=== PATIENT | female | born 1955 | race Caucasian/White ===

== ENCOUNTER 2016-10-18 18:05 | Emergency (ER) | payer BC ==
[2016-10-18] MEDS ORDERED: methylPREDNISolone SOD SUCC 125 MG/2 ML VIAL IVP ONE (18:15)
[2016-10-18 18:18] VITALS: TEMP 99
[2016-10-18] MEDS ORDERED: FAMOTIDINE 20 MG/2 ML SDV IVP ONE (18:19)
[2016-10-18] MEDS ORDERED: HYOSCYAMINE SULFATE 0.125 MG TAB PO ONE (18:20)
[2016-10-18] MEDS ORDERED: MAG HYDROX/AL HYDROX/SIMETH 30 ML UDCUP PO ONE (18:20)
--- NOTE | 2016-10-18 18:59 | EDPHY ---
H & P Time Seen by Provider: 10/18/16 18:14 HPI/ROS: This patient ordered food to be delivered to their home from restaurant the never 8 at and shortly after eating and she started developing some throat tightness and tightness in her chest that felt like prior food allergy to sesame while to her. She felt confident that this was the cause though she is uncertain of the ingredients due to the symptoms being so reminiscent of prior episode of sesame while allergy. However, she reports a bowling ball feeling in chest-like a crowbar central chest radiating to back as well. She states that she had this with prior episode. She feels some anxiety associated with her symptoms as well with no other focal symptoms except for some burning sensation that she attributes to acid reflux. She thinks that she has swelling in her throat that is causing the tight feeling in her throat as well. She took 50 mg of Benadryl shortly prior to arrival and came in for further evaluation. ROS: Constitutional: No fevers chills or fatigue HEENT: No URI symptoms. No coryza. No dysphonia Pulmonary: No wheezing or shortness of breath Cardiovascular: No heart palpitations. No lower extremity swelling or calf pain GI: No nausea or vomiting. No abdominal pain : No complaints Integumentary: No urticaria or skin rash. Neuro: No focal symptoms 10 point ROS is otherwise negative Past Medical/Surgical History: Obesity Prior food allergy Postmenopausal Family history is negative for premature coronary artery disease, DVT or PE Social History: Has 1 glass of wine a day. No illicit drug use Smoking Status: Never smoked Physical Exam: General Appearance: Alert, no distress. Eyes: Pupils equal and round no pallor or injection. ENT, Mouth: Mucous membranes moist. Respiratory: There are no retractions, lungs are clear to auscultation. Cardiovascular: Regular rate and rhythm. No murmur gallop or rub Gastrointestinal: Abdomen is soft and nontender, no masses, bowel sounds normal. Neurological: GCS 15 with no focal deficits. Skin: Warm and dry, no rashes. Musculoskeletal: Neck is supple nontender. Extremities are symmetrical, full range of motion. Psychiatric: Mood and affect are normal DIFFERENTIAL DIAGNOSIS: After history and physical exam differential diagnosis was considered for food allergy with GERD and esophageal spasm, coronary syndrome, KS, aortic dissection, aortic aneurysm, pneumonia, pneumothorax, Constitutional: Initial Vital Signs Temperature (C) 37.2 C 07/23/17 18:15 Heart Rate 86 10/18/16 18:15 Respiratory Rate 20 10/18/16 18:15 Blood Pressure 152/115 H 10/18/16 18:15 O2 Sat (%) 99 10/18/16 18:15 O2 Delivery Mode Room Air O2 (L/minute) 2 Allergies/Adverse Reactions: amoxicillin Allergy (Verified 10/18/16 18:15) aspirin Allergy (Verified 10/18/16 18:15) sesame oil Allergy (Verified 10/18/16 18:18) sesame seed Allergy (Verified 10/18/16 18:18) Home Medications: Medication Instructions Recorded Clopidogrel Bisulfate [Plavix] 75 mg PO DAILY #15 tablet 10/18/16 Estrogel 10/18/16 Famotidine [Pepcid 20 MG (*)] 20 mg PO BID #10 tab 10/18/16 Metoprolol Tartrate [Lopressor 25 25 mg PO BID #60 tab 10/18/16 mg (*)] predniSONE 40 mg PO DAILY #8 tab 10/18/16 MDM/Departure - MDM Diagnostics: Initial 12 lead EKG performed at 1909 indication chest pain Sinus rhythm at 67 Intervals: P R of 156, QRS of 90, QTC of 5 with 3 Rum[place]: P of 37, QRS of-57, T of-41 ST segments are notable for ST depression 1 mm in V3 and V4 with T-wave inversions in those leads, flat Ts in V5 Overall assessment: sinus rhythm with left anterior fascicular block, lateral ST depression-cannot rule out lateral ischemia Repeat EKG performed at 7:47 p.m. indication-spontaneous resolution of chest pain evaluate for interval EKG change Performed at 7:47 p.m. reveals sinus rhythm at 64 Intervals: Normal throughout Intervals: Change Rumney: Unchanged ST segments: Resolution of T-wave inversions in V3 and V4-ST depression also resolved. V5 T-wave now upright overall assessment sinus rhythm left anterior fascicular block with evidence of it dynamic lateral ST changes resolved back to normal Medications Given: Discontinued Medications Al Hydroxide/Mg Hydroxide (Maalox Susp) 30 ml PO EDNOW ONE Stop: 10/18/16 18:21 Last Admin: 10/18/16 18:26 Dose: 30 ml Clopidogrel Bisulfate (Plavix) 300 mg PO EDNOW ONE Stop: 10/18/16 19:52 Last Admin: 10/18/16 19:54 Dose: 300 mg Famotidine (Pepcid) 40 mg IVP EDNOW ONE Stop: 10/18/16 18:20 Last Admin: 10/18/16 18:27 Dose: 40 mg Hyoscyamine Sulfate (Levsin, Hyomax-Sl) 0.125 mg PO EDNOW ONE Stop: 10/18/16 18:21 Last Admin: 10/18/16 18:26 Dose: 0.125 mg Sodium Chloride (Ns) 1,000 mls @ 0 mls/hr IV EDNOW ONE PRN Reason: KVO Stop: 10/18/16 19:24 Last Admin: 10/18/16 19:30 Dose: 1,000 mls Methylprednisolone Sodium Succinate (Solu-Medrol) 125 mg IVP EDNOW ONE Stop: 10/18/16 18:16 Last Admin: 10/18/16 18:18 Dose: 125 mg Metoprolol Tartrate (Lopressor) 25 mg PO EDNOW ONE Stop: 10/18/16 20:24 Last Admin: 10/18/16 20:31 Dose: 25 mg ED Course/Re-evaluation: Patient took 50 mg of Benadryl prior to arrival Treated here with IV Solu-Medrol 125 and Pepcid 40 mg IV Maalox 30 mg and Levsin 0.125 for GERD symptoms with improvement Patient had subjective improvement in her symptoms - marked reduction and that tight feeling her throat. She was able to relax. She had improvement in the GERD symptoms. Manual BP recheck at 18 50- 160/94 After treatment with initial round of meds patient still has 2/10 chest pressure and tightness. EKG is performed which is abnormal. cardiac labs sent. The patient declines aspirin stating that it "makes her feel hot". Patient went to chest x-ray prior to the nitroglycerin sublingual being administered. By the time she came back from chest x-ray she reported that she had absolutely no chest or neck discomfort with symptom-free. Despite my concerns about potential lateral cardiac ischemia/coronary syndrome the patient declines admission understanding the possible risk of KS and cardiac arrest & . She did accept metoprolol 25 mg p.o. for a heart rate of 80 and blood pressure 150/[address] Edil Johnson-provider relations advocate on-call to facilitate close follow- up and after this conversation the patient decides that she will stay for 3 or 4 hours after initial troponin draw for repeat troponin as per my suggestion and Dr. Edil Johnson's suggestion. This patient remained symptom free for the duration of her stay in the emergency department. At 10:45 p.m. her heart rate is 60 and her blood pressure is 139/70 A repeat troponin more than 5 hours after the initial onset of her symptoms remains less than 0.12. At this point I feel this patient is low risk for having a coronary syndrome. She may have had EKG changes related to esophageal spasm. However she does warrant close follow-up and she understands this. Plan is for her to call [facility] tomorrow to arrange for close follow-up the next day or 2 for cardiac stress testing - Depart Disposition: Home, Routine, Self-Care Clinical Impression: Food allergy, Chest pain, EKG abnormality, Hypertension Condition: Good Instructions: Chest Pain (ED), Food Allergy (ED) Additional Instructions: 2. Chest pain 3. EKG abnormality 4. Hypertension Diagnosis: Food allergy Plan: Pepcid daily till symptoms resolved Prednisone in the morning after breakfast until symptoms resolve Benadryl in addition for the feeling of swelling or itching. Maalox in addition for any ongoing heartburn symptoms Plavix antiplatelet medication-75 mg a day until you have completed workup with Cardiology or are advised otherwise Metoprolol for hypertension 25 mg 2 times a day. When you call Cardiology mention that your taking this medication. The may when she to stop it prior to having a stress test for a day. Return for any significant worsening or recurrence of symptoms despite the treatment plan. Prescriptions: Clopidogrel Bisulfate [Plavix] 75 mg PO DAILY #15 tablet Famotidine [Pepcid 20 MG (*)] 20 mg PO BID #10 tab Metoprolol Tartrate [Lopressor 25 mg (*)] 25 mg PO BID #60 tab predniSONE 40 mg PO DAILY #8 tab Referrals: NONE *PRIMARY CARE P,. [Primary Care Provider] - As per Instructions
[2016-10-18] MEDS ORDERED: NITROGLYCERIN 0.4 MG BTL SL PRN (19:12)
--- NOTE | 2016-10-18 19:13 | CPEKG ---
Heart Rate: 67 RR Interval: 896 P-R Interval: 156 QRSD Interval: 90 QT Interval: 476 QTC Interval: 503 P Cer[place]: 37 QRS Cerro: -57 T Wave [place]: -41 EKG Severity - ABNORMAL ECG - EKG Impression: SINUS RHYTHM EKG Impression: LEFT ANTERIOR FASCICULAR BLOCK EKG Impression: NONSPECIFIC T ABNORMALITIES, DIFFUSE LEADS EKG Impression: BORDERLINE PROLONGED QT INTERVAL Electronically Signed By: Chandan Johnson 18-Oct-2016 20:34:15
[2016-10-18] MEDS ORDERED: NS 1,000 ML IV ONE (19:23)
[2016-10-18 19:24] LABS: % IMMATURE GRANULYOCYTES 0.3 % (0.0-1.1); ABSOLUTE IMMATURE GRANULOCYTES 0.02 10^3/uL (0.00-0.10); ADD DIFF? NO; ADD MORPH? NO; ADD SCAN? NO; ATYPICAL LYMPHOCYTE FLAG 0 (0-99); FRAGMENT RBC FLAG 0 (0-99); HEMATOCRIT 44.9 % (38.0-47.0); HEMOGLOBIN 15.4 g/dL (12.6-16.3); LEFT SHIFT FLG 0 (0-99); LIPEMIA HEMOLYSIS FLAG 90 (0-99); MEAN CELL HEMOGLOBIN 32.6 pg (27.9-34.1); MEAN CELL HEMOGLOBIN CONCENTR. 34.3 g/dL (32.4-36.7); MEAN CELL VOLUME 94.9 fL (81.5-99.8); MEAN PLATELET VOLUME 9.6 fL (8.7-11.7); PLATELET CLUMPS FLAG 20 (0-99); PLATELET COUNT 273 10^3/uL (150-400); RED BLOOD CELL COUNT 4.73 10^6/uL (4.18-5.33)
[2016-10-18 19:39] LABS: INR 0.97 (0.83-1.16); PROTIME(PATIENT) 12.6 SEC (12.0-15.0)
[2016-10-18 19:40] LABS: ANION GAP 12 mEq/L (8-16); APTT 24.7 SEC (23.0-38.0); CALCIUM 9.5 mg/dL (8.5-10.4); CARBON DIOXIDE 24 mEq/l (22-31); CHLORIDE 104 mEq/L (97-110); CREATININE 0.7 mg/dL (0.6-1.0); GLOMERULAR FILTRATION RATE > 60; GLUCOSE 106 mg/dL (70-100); POTASSIUM 3.8 mEq/L (3.5-5.2); SODIUM 140 mEq/L (134-144)
--- NOTE | 2016-10-18 19:49 | CPEKG ---
Heart Rate: 64 RR Interval: 938 P-R Interval: 152 QRSD Interval: 88 QT Interval: 460 QTC Interval: 475 P Eleanor: 45 QRS Eleanor: -48 T Wave Eleanor: -6 EKG Severity - ABNORMAL ECG - EKG Impression: SINUS RHYTHM EKG Impression: LEFT ANTERIOR FASCICULAR BLOCK EKG Impression: BORDERLINE T ABNORMALITIES, DIFFUSE LEADS Electronically Signed By: Chandan Johnson 18-Oct-2016 20:34:02
[2016-10-18] MEDS ORDERED: CLOPIDOGREL BISULFATE 75 MG TAB PO ONE (19:51)
[2016-10-18 19:53] LABS: TROPONIN I < 0.012 ng/mL (0-0.034)
[2016-10-18] MEDS ORDERED: METOPROLOL TARTRATE 25 MG TAB ONE (20:21)
[2016-10-18] MEDS ORDERED: METOPROLOL TARTRATE 25 MG TAB PO ONE (20:23)
[2016-10-18 22:41] VITALS: RESP 16; O2SAT 96
[2016-10-18 23:09] VITALS: BP 146/91; PULSE 65
== END 2016-10-18 23:15 | disposition home or self-care (01) ==
LOC: CED 18:05
DX: R07.9 Chest pain, unspecified (principal); T78.1XXA Other adverse food reactions, not elsewhere classified, initial encounter; I10 Essential (primary) hypertension; R94.31 Abnormal electrocardiogram [ECG] [EKG]
CPT/HCPCS: 71020-PO; 80048-PO; 84484-PO; 85025-PO; 85610-PO; 85730-PO; 96374; J1200